=== PATIENT | male | born 2000 | race Caucasian/White ===

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

== ENCOUNTER 2022-12-28 10:00 | Emergency (ER) | payer OTHER, SELFPAY ==
[2022-12-28 10:09] VITALS: BP 118/88; PULSE 113; RESP 16; TEMP 36.8; O2SAT 100
--- NOTE | 2022-12-28 10:40 | ED.URI ---
HPI - URI/Sore Throat General Chief Complaint: Upper Respiratory Infection Stated Complaint: cough, sore throat Time Seen by Provider: 12/28/22 10:41 Source: patient, family, RN notes reviewed and old records reviewed Mode of arrival: ambulatory Limitations: no limitations History of Present Illness HPI Narrative: 22 year old male accompanied by guardian with complaints of sore throat, sinus congestion and drainage, and cough for the past 4 days. Guardian states that he was exposed to strep throat over the weekend and she has also been ill. Patient reports that throat hurts to swallow, appetite is decreased; speaking softly states it hurts to talk also. Patient denies any ear pain, shortness of breath, chest tightness or pressure.Guardian reports no known fevers. MD elicited complaint: cough and sore throat Onset (ago): day(s) (4) Pain scale (0-10): 4 Able to tolerate fluids by mouth: Yes Exacerbating factors: swallowing and speaking Related Data Home Medications Medication Instructions Recorded Confirmed buspirone 15 mg tablet 15 mg PO DAILY 12/02/19 12/28/22 meloxicam 15 mg tablet 15 mg PO DAILY 12/02/19 12/28/22 oxcarbazepine 600 mg tablet 600 mg PO BID 12/02/19 12/28/22 atomoxetine 60 mg capsule 60 mg PO DAILY 12/28/22 12/28/22 risperidone 1 mg tablet 1 mg PO DAILY 12/28/22 12/28/22 Allergies Allergy/AdvReac Type Severity Reaction Status Date / Time Penicillins Allergy Mild Hives Verified 12/28/22 10:43 polyethylene glycol 3350 Allergy Unknown RASH Verified 12/28/22 10:17 amoxicillin [From Augmentin] Allergy Hives Verified 12/28/22 10:43 clavulanic acid Allergy Hives Verified 12/28/22 10:43 [From Augmentin] MOSQUITO BITES Allergy Mild Rash Uncoded 12/28/22 10:43 Review of Systems Review of Systems: CONSTITUTIONAL: Denies malaise, chills, sweats, or fever. EYES: Denies visual changes, redness, or discharge. ENT: Reports rhinorrhea, congestion, sinus pain, no otalgia, positive for sore throat. CARDIOVASCULAR: Denies chest pain, palpitations, or edema. RESPIRATORY: Reports cough.? Denies dyspnea. GASTROINTESTINAL: Denies abdominal pain, nausea, vomiting, diarrhea, appetite decreased SKIN: Denies rash or itching. MUSCULOSKELETAL: Denies myalgia. NEUROLOGIC: Denies headache. All systems reviewed & are unremarkable except as noted in HPI and below PMFSH Past Medical History Medical History (Updated 12/29/22 @ 08:53 by Sherron Ham NP) ADHD Ankle fracture, right Anxiety Asperger's disorder Autism EDS (Adamaris-Danlos syndrome) JRA (juvenile rheumatoid arthritis) Left wrist fracture Leg fracture, left Seasonal allergies Surgical History Surgical History H/O tooth extraction Social History Social History Smoking status: Never smoker Alcohol intake: never Comments At time of signature, agree with nursing past medical, surgical, social and family history. There is no relevant family history pertinent to the presenting complaint Exam Narrative: GENERAL: Well-appearing, well-nourished, and in no acute distress. HEAD: Normocephalic EYES: PERRLA, conjunctivae clear ENT: Nares clear, turbinates edematous and erythematous, clear to light yellow discharge. Mucous membranes moist. TM pearly mendoza with dull light reflex bilaterally; no tragal tenderness. Oropharynx erythematous without lesions. Tonsils red enlarged and without exudate, no drooling, no hoarseness, no trismus, uvula midline. NECK: Supple. lymphadenopathy CHEST: Clear to auscultation, breath sounds equal. No wheezing, rhonchi, rales, or stridor. No respiratory distress, speaks in full sentences. HEART: Regular rate and rhythm. No murmur heard. dry cough noted SAO2 100% on room air SKIN: Warm, dry, no rash. NEURO: Alert and oriented x3. PSYCH: Normal mood and affect Course Course Emergency Course
== END 2022-12-28 10:56 | disposition home or self-care (01) ==
PROVIDERS: Emergency Provider Registered Nurse
DX: J02.9 Acute pharyngitis, unspecified (principal); F41.9 Anxiety disorder, unspecified; Z79.1 Long term (current) use of non-steroidal anti-inflammatories (NSAID)
CPT/HCPCS: 87081; 87880; 99213; G0463

== ENCOUNTER 2023-01-04 10:45 | Outpatient (RCR) | payer OTHER, SELFPAY ==
--- NOTE | 2022-11-20 10:59 | OTOPEVAL1 ---
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 He has worn Silver Ring Splints for many years to support the joints in his fingers and thumb. He presents today to be measured for a new thumb swan neck splint as his current one broke. Reported Pain Level Pain Score 0: Self Report Assessment OT Clinical Summary Patient presents for new thumb splint secondary to hypermobility of his joints. He was measured for Silver Ring [place] Neck splint for the left thumb today. He will return when the splint arrives for fitting. Thank you for this referral. Plan of Care Interventions Check Out for Orthotic/Pr OT Services Indicated Yes These treatments will address the objective and functional deficits as defined above. The patient will be advanced safely and appropriately in order for the patient to progress towards his/her prior level of function. Additional exercises will be introduced and as well as a comprehensive home exercise program upon discharge, if needed, ?to ensure carryover of functional gains achieved in the clinic. This treatment plan has been reviewed and agreement upon by the patient.
--- NOTE | 2023-01-05 11:44 | OTOPDC ---
Assessment and note entered by Wilmer Felix, OTR/Monique, CHT Evaluation Information Assessment Status Discharge Assessment OT Clinical Summary Patient referred to outpatient hand therapy with dx of Adamaris Danlos Syndrome. He has been wearing Silver Ring Splints for many years and returns to be measured for a new swan neck splint due to his other splint breaking. Patient was measured and the splint has been issued. No further skilled OT indicated at this time. Discharging from OT services. Plan of Care OT Services Indicated No
== END 2023-02-03 09:24 | disposition home or self-care (01) ==
LOC: ANHOT 10:45
PROVIDERS: PCP Family Medicine; Visit Provider Internal Medicine
DX: M35.7 Hypermobility syndrome (principal); M79.641 Pain in right hand; M79.642 Pain in left hand
CPT/HCPCS: 97165; L3933

== ENCOUNTER 2023-06-08 09:50 | Outpatient (CLI) | payer OTHER, SELFPAY ==
--- NOTE | ~2023-06-08 | XR_ITS ---
EXAMINATION: XR barium swallow DATE: 06/08/2023 10:28 INDICATION: Dysphagia TECHNIQUE: The patient drank thick barium, gas-producing crystals, and thin barium. Fluoroscopic spot radiographs of the hypopharynx and esophagus were obtained. Fluoroscopy exposure time was 1.8 minut es. A total of 1523 fluoroscopic images were recorded. COMPARISON: None. FINDINGS: The pharynx is symmetric and without evidence of mass lesion or mucosal irregularity. The e sophagus is normal without mass or stricture. Esophageal motility is normal. Very small sliding-type hiatal hernia with gastroesophageal junction approximately 3 cm above level of the diaphragm. There w as no gastroesophageal reflux with provocative maneuvers. IMPRESSION: 1. Very small sliding-type hiatal hernia without reflux with provocative maneuvers. Otherwise normal esophagram. Reviewed, dictated and finalized at location A. IMPRESSION: 1. Very small sliding-type hiatal hernia without reflux with provocative maneuv ers. Otherwise normal esophagram.
== END 2023-06-08 09:51 | disposition home or self-care (01) ==
PROVIDERS: Visit Provider Internal Medicine
DX: R13.10 Dysphagia, unspecified (principal); K44.9 Diaphragmatic hernia without obstruction or gangrene
CPT/HCPCS: 74220

== ENCOUNTER 2023-09-06 02:09 | Day surgery (SDC) | payer OTHER, SELFPAY ==
[2023-08-24 15:44] VITALS: BMI 18.6
--- NOTE | 2023-09-03 09:21 | SUR.PREOP ---
Patient called regarding upcoming procedure. Reviewed preop instructions, appointment times, and procedure prep.
--- NOTE | 2023-09-05 10:58 | PM.HPGS ---
History of Present Illness History of Present Illness Consent: Risks, benefits, and alternatives have been discussed and questions answered. Patient agrees to proceed with procedure. Chief complaint: dysphagia,GERD,Diaphragmatic hernia Narrative: Nas Cardenas is a 22 year old male Who is having difficulty swallowing. He has a history of Asperger's, ADD, Ehlerss-Danlos syndrome, anxiety, and hx of oral surgery.? He states over the last 1 year he has intermittent episodes of dysphagia where he feels like food gets stuck and he starts choking and goes down his windpipe.? He states this mainly occurs with solids only. He states it only happens with stress.? He denies any typical GERD symptoms Review of Systems Review of Systems: All systems reviewed & are unremarkable except as noted in HPI and below PMFSH Past Medical History Medical History ADD (attention deficit disorder) ADHD Ankle fracture, right Anxiety Asperger's disorder Autism Dysphagia EDS (Adamaris-Danlos syndrome) Hiatal hernia JRA (juvenile rheumatoid arthritis) Left wrist fracture Leg fracture, left Seasonal allergies Surgical History Surgical History H/O tooth extraction Family History Family History Grandparent Breast cancer Uterine cancer Heart disease Renal disease Social History Social History Smoking status: Never smoker Alcohol intake: never Substance use: never Substance use type: does not use Lack of Transportation: No Lack of Food: Never True Current Housing: I Have Housing Concerned About Future Housing: No Difficulty Paying Gas/Electric Bills: No Difficulty Paying for Meds: No Currently Unemployed: No Education: High School Diploma/GED Difficulty w/ Childcare or Family Care: No Living arrangements: with family Spiritual care concerns: No Meds Home Medications and Allergies Home Medications Medication Instructions Recorded Confirmed Type meloxicam 15 mg tablet 15 mg PO DAILY 12/02/19 09/06/23 History oxcarbazepine 600 mg tablet 600 mg PO BID 12/02/19 09/06/23 History atomoxetine 60 mg capsule 60 mg PO DAILY 12/28/22 09/06/23 History buspirone 15 mg tablet 7.5 mg PO TID 07/06/23 09/06/23 History risperidone 1 mg tablet 1 mg PO BID 07/06/23 09/06/23 History Caltrate with Vitamin D3 1 cap PO DAILY 08/24/23 09/06/23 History benzoyl peroxide 5 % topical gel 1 applic topical HS 08/24/23 09/06/23 History esomeprazole magnesium 40 mg 40 mg PO DAILY PRN DYSPHAGIA 08/24/23 09/06/23 History capsule,delayed release (Nexium) mecobalamin (vitamin B12) 1,000 1,000 mcg PO DAILY 08/24/23 09/06/23 History mcg chewable tablet milk thistle 175 mg capsule 175 mg PO DAILY 08/24/23 09/06/23 History psyllium husk 0.52 gram capsule 0.52 g PO 3XW 08/24/23 09/06/23 History Allergies Allergy/AdvReac Type Severity Reaction Status Date / Time meningococcal vaccine B and C Allergy Severe Rash Verified 09/06/23 09:15 polyethylene glycol 3350 Allergy Severe RASH Verified 09/06/23 09:15 amoxicillin [From Augmentin] Allergy Intermediate Hives Verified 09/06/23 09:15 clavulanic acid Allergy Intermediate Hives Verified 09/06/23 09:15 [From Augmentin] Penicillins Allergy Intermediate Hives Verified 09/06/23 09:15 MOSQUITO BITES Allergy Intermediate Rash Uncoded 09/06/23 09:15 Exam Const: General: alert Orientation/consciousness: patient oriented x3 Resp: Auscultation: clear to auscultation bilaterally Cardio: Rhythm: regular rhythm GI: GI Palp: Yes Soft to palpation and No Tenderness to palpation present (GI) Neuro: General: patient oriented x3 Assessment and Plan Assessment and plan (1) Dysphagia: Code(s): R13.10 - Dysphagia, unspecified Status: Acute Assessment and
[2023-09-06 09:16] VITALS: BP 117/72; PULSE 99; RESP 18; TEMP 36.5; O2SAT 100
[2023-09-06] MEDS: LACTATED RINGERS 1,000 ML 150 ML IV CONT (09:18)
--- NOTE | 2023-09-06 09:32 | WPDANESEPPF ---
Anes - Initial Pre Proc Eval Procedure: Operation Date: 09/06/23 10:30 Proposed Procedures p Esophagogastroduodenoscopy - Anjel Quezada MD Date/Time: 09/06/23 09:32 Surgeon: Anjel Quezada MD Pre Op Diagnosis: dysphagia,GERD,Diaphragmatic hernia Patient Data Age: 22 Gender: M Height: 1.88 m Weight: 65.6 kg Last Vital Signs Temp 97.7 F 09/06/23 09:16 Pulse 99 09/06/23 09:16 Resp 18 09/06/23 09:16 BP 117/72 09/06/23 09:16 Pulse Ox 100 09/06/23 09:16 O2 Del Method Room Air 09/06/23 09:16 Allergies Allergy/AdvReac Type Severity Reaction Status Date / Time meningococcal vaccine B and C Allergy Severe Rash Verified 09/06/23 09:15 polyethylene glycol 3350 Allergy Severe RASH Verified 09/06/23 09:15 amoxicillin [From Augmentin] Allergy Intermediate Hives Verified 09/06/23 09:15 clavulanic acid Allergy Intermediate Hives Verified 09/06/23 09:15 [From Augmentin] Penicillins Allergy Intermediate Hives Verified 09/06/23 09:15 MOSQUITO BITES Allergy Intermediate Rash Uncoded 09/06/23 09:15 Home Medications Medication Instructions Recorded Confirmed Type meloxicam 15 mg tablet 15 mg PO DAILY 12/02/19 09/06/23 History oxcarbazepine 600 mg tablet 600 mg PO BID 12/02/19 09/06/23 History atomoxetine 60 mg capsule 60 mg PO DAILY 12/28/22 09/06/23 History buspirone 15 mg tablet 7.5 mg PO TID 07/06/23 09/06/23 History risperidone 1 mg tablet 1 mg PO BID 07/06/23 09/06/23 History Caltrate with Vitamin D3 1 cap PO DAILY 08/24/23 09/06/23 History benzoyl peroxide 5 % topical gel 1 applic topical HS 08/24/23 09/06/23 History esomeprazole magnesium 40 mg 40 mg PO DAILY PRN DYSPHAGIA 08/24/23 09/06/23 History capsule,delayed release (Nexium) mecobalamin (vitamin B12) 1,000 1,000 mcg PO DAILY 08/24/23 09/06/23 History mcg chewable tablet milk thistle 175 mg capsule 175 mg PO DAILY 08/24/23 09/06/23 History psyllium husk 0.52 gram capsule 0.52 g PO 3XW 08/24/23 09/06/23 History Patient hx anesthesia problems: none Family hx anesthesia problems: none Results Review: All pre-operative results and documents have been reviewed as part of the pre-operative evaluation. [facility] Past Medical History Medical History ADD (attention deficit disorder) ADHD Ankle fracture, right Anxiety Asperger's disorder Autism Dysphagia EDS (Adamaris-Danlos syndrome) Hiatal hernia JRA (juvenile rheumatoid arthritis) Left wrist fracture Leg fracture, left Seasonal allergies Surgical History Surgical History H/O tooth extraction Family History Family History Grandparent Breast cancer Uterine cancer Heart disease Renal disease Social History Social History Smoking status: Never smoker Alcohol intake: never Substance use: never Substance use type: does not use Lack of Transportation: No Lack of Food: Never True Current Housing: I Have Housing Concerned About Future Housing: No Difficulty Paying Gas/Electric Bills: No Difficulty Paying for Meds: No Currently Unemployed: No Education: High School Diploma/GED Difficulty w/ Childcare or Family Care: No Living arrangements: with family Spiritual care concerns: No Anes - Eval Final PreProcedure Day of Procedure 09/06/23 09:32 Patient weight: normal Heart: regular rate and rhythm Lungs: clear to auscultation Airway: Mallampati scale class II Neurological: alert and oriented Last oral intake: >/= 8 hours ASA classification: III Emergent: no Anesthetic plan: proceed Anesthesia type and monitoring: general GIVS and standard monitoring Results Review: All pre-operative results and documents have been reviewed as part of the pre-operative evaluation. Informed Consent: The patient's anesthetic plan and
[2023-09-06] MEDS: BENZOCAINE (*SP) 60 ML SPRAY CAN (HURRICAINE) 1 SPRAY MUCOUS MEM (10:18)
[2023-09-06 10:28] VITALS: BP 93/62; PULSE 81; RESP 16; O2SAT 95
[2023-09-06 10:38] VITALS: BP 118/60; PULSE 78; RESP 25; O2SAT 100
[2023-09-06 10:48] VITALS: BP 101/72; PULSE 75; RESP 21; O2SAT 100
== END 2023-09-06 10:51 | disposition home or self-care (01) ==
PROVIDERS: PCP Internal Medicine; Visit Provider Internal Medicine Gastroenterology
PROC: 0DJ08ZZ Inspection of Upper Intestinal Tract, Via Natural or Artificial Opening Endoscopic (ICD-10-PCS; CPT 43235; principal; 2023-09-06 10:30)
DX: R13.10 Dysphagia, unspecified (principal); F41.9 Anxiety disorder, unspecified; F84.5 Asperger's syndrome; Q79.60 Ehlers-Danlos syndrome, unspecified; F90.9 Attention-deficit hyperactivity disorder, unspecified type; J30.2 Other seasonal allergic rhinitis; Z80.3 Family history of malignant neoplasm of breast; Z82.49 Family history of ischemic heart disease and other diseases of the circulatory system; Z80.49 Family history of malignant neoplasm of other genital organs; K21.9 Gastro-esophageal reflux disease without esophagitis
CPT/HCPCS: 43239; 87081; 88305; J2704; J7120

== ENCOUNTER 2024-04-08 10:37 | Emergency (ER) | payer OTHER, SELFPAY ==
[2024-04-08 11:05] VITALS: BP 127/77; PULSE 109; RESP 16; TEMP 36.4; O2SAT 100
--- NOTE | 2024-04-08 11:19 | ED.MALEGU ---
HPI - Male Genitourinary General Chief complaint: Urogenital-Male Stated complaint: painful urination, uti Source: patient and RN notes reviewed Mode of arrival: ambulatory Limitations: no limitations History of Present Illness HPI Narrative: 23 y/o male with hx asperger's disorder presented for c/o burning with urination. Onset 2 days. Reports hx UTIs. Denies hematuria, nausea, vomiting, abdominal pain, flank pain, constipation, diarrhea, fevers or chills. Related Data Home Medications Medication Instructions Recorded Confirmed meloxicam 15 mg tablet 15 mg PO DAILY 12/02/19 10/12/23 oxcarbazepine 600 mg tablet 600 mg PO BID 12/02/19 10/12/23 atomoxetine 60 mg capsule 60 mg PO DAILY 12/28/22 10/12/23 buspirone 15 mg tablet 7.5 mg PO TID 07/06/23 10/12/23 risperidone 1 mg tablet 1 mg PO BID 07/06/23 10/12/23 Caltrate with Vitamin D3 1 cap PO DAILY 08/24/23 10/12/23 benzoyl peroxide 5 % topical gel 1 applic topical HS 08/24/23 10/12/23 esomeprazole magnesium 40 mg 40 mg PO DAILY PRN DYSPHAGIA 08/24/23 10/12/23 capsule,delayed release (Nexium) mecobalamin (vitamin B12) 1,000 1,000 mcg PO DAILY 08/24/23 10/12/23 mcg chewable tablet milk thistle 175 mg capsule 175 mg PO DAILY 08/24/23 10/12/23 psyllium husk 0.52 gram capsule 0.52 g PO 3XW 08/24/23 10/12/23 atomoxetine 40 mg capsule mg PO 04/08/24 (Strattera) Allergies Allergy/AdvReac Type Severity Reaction Status Date / Time meningococcal vaccine B and C Allergy Severe Rash Verified 04/08/24 11:00 polyethylene glycol 3350 Allergy Severe RASH Verified 04/08/24 11:00 amoxicillin [From Augmentin] Allergy Intermediate Hives Verified 04/08/24 11:00 clavulanic acid Allergy Intermediate Hives Verified 04/08/24 11:00 [From Augmentin] Penicillins Allergy Intermediate Hives Verified 04/08/24 11:00 MOSQUITO BITES Allergy Intermediate Rash Uncoded 04/08/24 11:00 Review of Systems Review of Systems: CONSTITUTIONAL: Denies body aches, fever, chills, or sweats. CARDIOVASCULAR: Denies chest pain, palpitations, or edema. RESPIRATORY: Denies cough or dyspnea. GASTROINTESTINAL: Denies abdominal pain, nausea, vomiting, or diarrhea. GENITOURINARY: Reports dysuria, frequency, denies urgency, hematuria, flank pain SKIN: Denies rash, itching, or wounds. MUSCULOSKELETAL: Denies back pain or myalgia. [facility] Past Medical History Medical History ADD (attention deficit disorder) ADHD Ankle fracture, right Anxiety Asperger's disorder Autism Dysphagia EDS (Adamaris-Danlos syndrome) Hiatal hernia JRA (juvenile rheumatoid arthritis) Left wrist fracture Leg fracture, left Seasonal allergies Surgical History Surgical History H/O tooth extraction Family History Family History Grandparent Breast cancer Uterine cancer Heart disease Renal disease Social History Social History Smoking status: Never smoker Alcohol intake: never Substance use: never Substance use type: does not use Lack of Transportation: No Lack of Food: Never True Current Housing: I Have Housing Concerned About Future Housing: No Difficulty Paying Gas/Electric Bills: No Difficulty Paying for Meds: No Currently Unemployed: No Education: High School Diploma/GED Difficulty w/ Childcare or Family Care: No Living arrangements: with family Spiritual care concerns: No Comments At time of signature, I have reviewed and agree with nursing past medical, surgical, social and family history unless otherwise noted. Please see nursing chart for further information. There is no relevant family history pertinent to the presenting complaint Exam Narrative: GENERAL: Well-appearing and in no acute distress. HEAD: Normocephalic EYES: EOMI. . ENT: Mucous membranes
== END 2024-04-08 12:23 | disposition home or self-care (01) ==
PROVIDERS: Emergency Provider Nurse Practitioner Family; PCP Internal Medicine
DX: N39.0 Urinary tract infection, site not specified (principal); B96.4 Proteus (mirabilis) (morganii) as the cause of diseases classified elsewhere; F90.9 Attention-deficit hyperactivity disorder, unspecified type; F84.5 Asperger's syndrome; F41.9 Anxiety disorder, unspecified; M08.00 Unspecified juvenile rheumatoid arthritis of unspecified site
CPT/HCPCS: 81003; 87077; 87086; 87088; 87186; 99213; G0463

== ENCOUNTER 2025-09-18 13:51 | Outpatient (CLI) | payer OTHER, SELFPAY ==
[2025-09-18 14:39] LABS: Hematocrit 41.2 % (42.0-52.0); Hemoglobin 14.2 g/dL (14.0-18.0); Immature Granulocyte Percent A 1.0 % (0-0.5); Lymphocytes Absolute Auto 1.90 K/mm3 (0.9-3.2); Mean Corpuscular HGB Conc 34.5 g/dl (32-36); Mean Corpuscular Hemoglobin 29.0 pg (26-34); Mean Corpuscular Volume 84.1 fl (80-100); Nucleated Red Blood Cells Absolute Auto 0.000 K/mm3 (0.0-0.012); Nucleated Red Blood Cells Perc 0.0 % (0.0-0.2); Platelet Count Result 155 k/mm3 (150-375); Red Blood Count 4.90 M/mm3 (4.6-6.20); White Blood Count 5.8 K/mm3 (4.5-10.0)
[2025-09-18 14:49] LABS: Hemoglobin A1C 5.3 % (<5.7)
[2025-09-18 14:58] LABS: Alanine Aminotransferase 22 U/L (6-50); Albumin Level 4.6 g/dL (3.5-5.1); Alkaline Phosphatase 71 U/L (38-126); Anion Gap 7 mmol/L (4-12); Aspartate Amino Transferase 24 U/L (17-59); Bilirubin,Total 0.2 mg/dL (0.2-1.3); Blood Urea Nitrogen 24 mg/dL (9-20); Calcium 9.2 mg/dL (8.4-10.2); Carbon Dioxide 28 mmol/L (22-30); Chloride 103 mmol/L (98-107); Cholesterol 151 mg/dL (0-200); Estimated Glomerular Filt Rate > 60; Glucose 86 mg/dL (65-110); HDL Direct 62 mg/dL; Potassium 4.3 mmol/L (3.4-5.0); Sodium 138 mmol/L (137-145); Total Protein 7.3 g/dL (6.3-8.2); Triglycerides 124 mg/dL (<150)
[2025-09-18 15:33] LABS: Thyroid Stimulating Hormone 1.070 uIU/mL (0.465-4.680)
--- OUTSIDE RECORDS SUMMARY | 2025-09-18 15:54 | XMS_ITS | Encounter Summary ---
Author Organization [facility] Address [address] [place] [address] Care Team Providers Care Developer Advisor Name Role Phone Kenia Bull MD Primary Care Provider [phone] Shamir Dias MD [facility] Coco Santos MD Primary Care Provider [phone] Encounter Details Date Type Department Care Team (Late st Contact Info) Description 07/29/2018 Abstract [facility] CONVERSION [address] [place] [address] , Generic Conversion, Social History Tobacco Use Types Packs/Day Years Used Date Smoking Tobacco: Never Assessed Comments Unknown Sex and Gender Information Value Date Recorded Sex Assigned at Male 02/13/2025 11:45 AM CDT Legal Sex Male 8:51 PM CDT Gender Identity Male 02/13/2025 11:45 AM CDT Sexual Orientation Not on file documented as of this encounter Plan of Treatment Upcoming Encounters Date Type Department Care Team (Late Contact Info) Description 02/11/2026 9:00 AM CDT Office Visit [facility] Multispecialty Care - [place] [address] [address] [place] [address] Coco Santos MD [address] [place] [address] documented as of this encounter Visit Diagnoses Not on filedocumented in this encounter Additional Health Concerns Infection Onset Date Last Indicated Resolved Time COVID-19 Rule Out 03/22/2021 03/22/2021 03/22/2021 12:19 PM CDT documented as of this encounter Care Teams Developer Advisor Relationship Specialty Start Date End Date Kenia Bull MD PCP - General INTERNAL MEDICINE 08/31/18 01/28/23 Shamir Dais MD PCP - General FAMILY PRACTICE 01/29/23 04/12/23 Coco Santos MD [address] [address] PCP - General INTERNAL MEDICINE 04/13/23 documented as of this encounter
--- OUTSIDE RECORDS SUMMARY | 2025-09-18 15:54 | XMS_ITS | Clinical Summary ---
Author Organization [facility] Address [address] [place] [address] Care Team Providers Care Tier In Name Role Phone Coco Santos MD Primary Care Provider [phone] Allergies Active Allergy Reactions Criticality Noted Date Comments Amoxicillin-Pot Clavulanate Hives High 06/26/2010 Mening Acy&W-135 Diphth Conj Redness 06/17/2020 Patient received his first menactra injection at the veneer sample maker on 05/22 and broke out in hives/redness. Grandmother states he will not be receiving the second injection per veneer sample maker. Penicillins Hives High 06/26/2010 Polyethylene Glycol (Macrogol) Rash Low 07/18/2015 Medications atomoxetine (STRATTERA) 60 MG capsule Take 1 capsule (60 mg total) by mouth daily. Active busPIRone 15 MG tablet Take 0.5 tablets (7.5 mg total) by mouth 3 (three) times daily. Active Calcium Citrate-Vitamin D 315-200 MG-UNIT Tab Take 1 tablet by mouth daily. 6 Active Milk Thistle Extract 87.5 MG Cap Take 1 capsule by mouth daily. Active OXcarbazepine (TRILEPTAL) 600 MG Tab tablet Take 1 tablet (600 mg total) by mouth 2 (two) times daily. Active Elastic Bandages & Supports (KIA ANKLE BRACE) MiscIndications:Un stable ankle, unspecified laterality,Benign hypermobility syndrome MILAGROS Ankle Braces, please fill what insurance will cover 1 each 0 Active acetaminophen 325 MG tablet 1 tablet (325 mg total) every 6 (six) hours as needed for Pain. 0 Active risperiDONE 1 MG tabletIndications: Asperger syndrome (HHS/HCC) Take 1 tablet (1 mg total) by mouth 2 (two) times daily. 60 tablet 2 2 Active FINGER SPLINT MISC, DME,Indications:Be nign hypermobility syndrome,Pain in both hands 1 Device by Does not apply route daily. Patient needs a new splint left hand thumb 1 Device 1 2 Active OXcarbazepine (TRILEPTAL) 150 MG tablet Take 1 tablet (150 mg total) by mouth 2 (two) times daily. 4 Active Benzoyl Peroxide 5 % GelIndications:Acn e vulgaris Place 1 g onto the skin nightly at bedtime. 90 g 11 5 Active folic acid (FOLVITE) 1 MG tabletIndications: Folic acid deficiency Take 1 tablet (1 mg total) by mouth daily. 90 tablet 1 5 Active tretinoin (RETIN-A) 0.05 % creamIndications:A cne vulgaris Apply topically nightly at bedtime. Apply to acne. 45 g 3 5 Active omeprazole (PRILOSEC) 40 MG capsuleIndications :Gastroesophageal reflux disease without esophagitis Take 1 capsule (40 mg total) by mouth daily as needed. 90 capsule 1 5 Active Cyanocobalamin (VITAMIN B-12) 1000 MCG SL TabIndications:Vit way B [address] 1 tablet under the tongue daily. 90 tablet 2 5 Active meloxicam (MOBIC) 15 MG tabletIndications: Pain in joint involving multiple sites Take 1 tablet (15 mg total) by mouth daily as needed. 30 tablet 6 5 Active Active Problems Problem Noted Date Diagnosed Date Ear lump, right 08/11/2024 Ankle pain, right 09/29/2017 Rhinitis 10/11/2016 Chest pain 05/25/2016 Acid reflux disease 10/29/2015 Ankle instability 10/29/2015 Asperger syndrome 10/29/2015 Overview (08/31/2018): Annotation - [id number]: Psych Dr Domínguez in [place] Benign hypermobility syndrome 10/29/2015 Pain of hand 10/29/2015 Resolved Problems Problem Noted Date Diagnosed Date Resolved Date Foreign body in penis, initial encounter 06/17/2020 06/12/2021 Foreign body in bladder and urethra 06/06/2020 01/22/2021 Physical exam 11/02/2018 07/05/2020 Encounters Date Type Department Care Team Description 08/13/2025 10:20 AM CDT Office Visit [facility] Medical [facility] Multispecialty Care - [address] [place] [address] Coco Santos MD Follow Up (Asperger's syndrome ); Vitamin D Deficiency; B12 Deficient ; Eye Problem (In eye lid left noticed last week. ); Acne 08/13/2025 Travel from Last 3 Months Immunizations Immunization Administration Dates Next Due DTaP (Daptacel) 06/08/2007 Dtap 03/04/2004, 3,04/16/2003,11/25 Dtap (Generic) 06/08/2007 Flumist (Intranasal LAIV4) 08/08/2014 Flumist (Intranasal) 08/12/2011,07/13/2011 HPV 10/07/2016,08/25/2016 HPV GARDASIL 9-VALENT 03/09/2017,07/15/2015 HPV4 (Gardasil) 10/07/2016,08/25/2016 Hepatitis B Pediatric 08/29/2003,2002 Hepatitis B/Hib 3 Dose Schedule 04/16/2003 Hib 01/01/2004,08/29/2003,2002 Influenza Adult (Generic) 08/01/2020,12/2018,08/08/2018,06/26,07/28/2016,07/15/2015,09/06/20 13,09/14/2012 MENINGOCOCCAL A C Y&W-135 oligosaccharide (MENVEO) 06/28/2013 MMR 01/01/2004,10/01/2003 Menactra 05/22/2020,07/15/2015 Meningcoccal Group B (Bexser o)(aka Meningitis) 08/01/2020,05/22/2020 Pneumococcal (Prevnar 7) 01/01/2004,08/29/2003,0 04/16/2003 Polio IPV (Ipol) 01/01/2004,04/16/2003, 3 Rotavirus (RotaTeq) 07/15/2015 Tdap (Generic) 07/15/2015,06/28/2013 Tdap (Historical Only-select from magnify glass) 11/19/2020 Varicella Vaccine 08/08/2018,10/01/2003 Family History Medical History Relation Comments None Brother None Daughter None Father Arthritis Maternal Aunt Progressive Rheu matoid Cancer Maternal Aunt Multiple Myeloma None Maternal Aunt None Maternal Grandfather Cancer Maternal Grandmother Breast & Ut erine Diabetes Maternal Grandmother Heart Disease Maternal Grandmother Defec t-Myocardio [place] Hypertension Maternal Grandmother Kidney Disease Maternal Grandmother Thin Membra ne Basement Disease None Maternal Grandmother None Maternal Uncle None Mother None Paternal Aunt None Paternal Grandfather None Paternal Grandmother None Paternal Uncle None Sister None Son Relation Status Comments Brother Daughter Father Maternal Aunt Maternal Grandfather Maternal Grandmother Maternal Uncle Mother Paternal Aunt Paternal Grandfather Paternal Grandmother Paternal Uncle Sister Son Social History Tobacco Use Types Packs/Day Years Used Date Smoking Tobacco: Never Smokeless Tobacco: Never Tobacco Cessation:Counseling Given: Yes Comments:Counseled by Dr Santos. Alcohol Use Standard Drinks/Week Comments Never 0 (1 standard drink = 0.6 oz pur e alcohol) AUDIT-C Answer Date Recorded Frequency of Alcohol Consumption Never 08/31/2018 Average Number of Drinks Not on file 018 Frequency of Binge Drinking Not on file 04/2018 PHQ-2 Answer Date Recorded Patient Health Questionnaire-2 Score 0 02/13/2025 Comments Unknown Sex and Gender Information Value Date Recorded Sex Assigned at Male 02/13/2025 11:45 AM CDT Legal Sex Male 8:51 PM CDT Gender Identity Male 02/13/2025 11:45 AM CDT Sexual Orientation Not on file Last Filed Vital Signs Vital Sign Reading Time Taken Comments Blood Pressure 114/78 08/13/2025 10:35 AM CDT Pulse 86 08/13/2025 10:35 AM CDT Temperature 37 C (98.6 F) 08/13/2025 10:35 AM CDT Respiratory Rate 14 08/13/2025 10:3 5 AM CDT Oxygen Saturation 98% 08/13/2025 10: 35 AM CDT Inhaled Oxygen Concentration - - Weight 68.9 kg (151 lb 12.8 oz) 10/20/2 025 10:35 AM CDT Height 188 cm (6' 2) 08/13/2025 10:35 AM CDT Body Mass Index 19.49 08/13/2025 10:35 AM CDT Plan of Treatment Upcoming Encounters Date Type Department Care Team (Late st Contact Info) Description 02/11/2026 9:00 AM CDT Office Visit [facility] Multispecialty Care - [place] [address] [address] [address] [place] [address] Coco Santos MD [address] [facility] [address] [place] [address] Health Maintenance Due Date Last Done Comments COVID-19 Vaccine ( season) 2025 01/02/2021 Annual Physical 02/13/2026 02/13/2025, 01/07/2024 Influenza Adult (#1) 2026 08/01/2020, 07/27/2019, 08/08/2018, Additional history exists Postponed from 07/25/2025 (Patient Refused) DTaP, Tdap and Td Vaccines (9 - Td or Tdap) 11/19/2030 11/19/2020, 07/15/2015, 06/28/2013, Additional history exists Hepatitis B Vaccines Completed 08/29/2003, 04/16/2003, 2002 Pneumococcal Vaccine: Pediatrics (0 to 5 Years) and At-Risk Patients (6 to 49 Years) Aged Out 01/01/2004, 08/29/2003, 04/16/2003 No longer eligible based on patient's age to complete this topic HPV Vaccines Completed 03/09/2017, 09/24, 10/07/2016, Additional history exists Meningococcal Vaccine Completed 05/22/2020 , 07/15/2015, 06/28/2013 Meningococcal B Vaccine Completed 08/01/2020, 05/22 Hepatitis C Completed 01/07/2024 PHQ-2 (Physician [place]) Completed 02/13/2025 Hepatitis A Vaccines Aged Out No long er eligible based on patient's age to complete this topic RSV Immunizations Under 20 Months Aged Out No longer eligible based on patient's age to complete this topic Procedures Procedure Name Priority Date/Time Associated Diagnosis Comments REMOVE IMPACTED CERUMEN INSTRUMENTATION UNILAT Routine 08/13/2025 10:20 AM CDT Bilateral impacted cerumen HEPATITIS C ANTIBODY Routine 01/07/2024 1:12 PM CDT Annual physical exam General medical exam Encounter for hepatitis C screening test for low risk patient from Last 3 Months or Most Recently Relevant to Health Maintenance Results * REMOVE IMPACTED CERUMEN INSTRUMENTATION UNILAT (08/13/2025 10:20 AM CDT) Narrative Coco Santos MD - 08/13/2025 10:20 AM CDT Coco Santos MD 08/13/2025 11:12 AM *Ear Cerumen Removal Date/Time: 08/13/2025 10:20 AM Performed by: Coco Santos MD Authorized by: Coco Santos MD Ceruminolytics applied: Ceruminolytics applied prior to the procedure. Location details: right ear and left ear Patient tolerance: patient tolerated the procedure well with no immediate complications Comments: Impacted wax removed bilaterally Procedure type: curette Coco Santos MD PROCEDURE/MINOR SURGICAL ORDERAB LES Final Result * HEPATITIS C ANTIBODY (01/07/2024 1:12 PM CDT) HEPATITIS C AB NON-REACTI VE NON-REACT SERVANDO 01/07/2024 10:[address] [facility] Comment: ANTIBODIES TO HCV NOT DETECTED. DOES NOT EXCLUDE THE POSSIBILITY OF EXPOSURE TO HCV. 01/07/2024 1:12 PM CDT Coco Santos MD LABORATORY Final Result [facility] [address] [place] [address], [id number] from Last 3 Months or Most Recently Relevant to Health Maintenance Insurance t [place]abe [place], [place] [id number] [place] [address] MEDICAID MEDICAID Advance Directives Documents on File Type Date Recorded Patient Program Advisor Expl anation Guardianship - Temporary 10/19/2018 12:00 AM GUARDIANSHIP DOCUMENT Guardianship - Temporary 07/29/2018 12:00 AM GUARDIANSHIP DOCUMEN T Guardianship - Temporary 07/12/2018 12:00 AM GUARDIANSHIP DOCUMEN T Guardianship - Temporary 05/18/2018 12:00 AM GUARDIANSHIP DOCUMEN T Care Teams Tier In Relationship Specialty Start Date End Date Coco Santos MD [address] [address] PCP - General INTERNAL MEDICINE 04/13/23
--- OUTSIDE RECORDS SUMMARY | 2025-09-18 15:54 | XMS_ITS | Encounter Summary ---
Author Organization [facility] Address [address] [place] [address] Care Team Providers Care Hot Iron Worker Name Role Phone Coco Santos MD Primary Care Provider [phone] Encounter Details Date Type Department Care Team (Late st Contact Info) Description 05/31/2023 Pro Stream +hart Message Enc [facility] [place] [address] [place] [address] [address] [place] [address] Coco Santos MD [address] [facility] [address] [place] [address] Nas Cardenas Social History Tobacco Use Types Packs/Day Years Used Date Smoking Tobacco: Never Smokeless Tobacco: Never Comments:Counseled by Dr Kayla peter. Alcohol Use Standard Drinks/Week Comments No 0 (1 standard drink = 0.6 oz pur e alcohol) AUDIT-C Answer Date Recorded Frequency of Alcohol Consumption Never 08/31/2018 Average Number of Drinks Not on file 018 Frequency of Binge Drinking Not on file 04/2018 PHQ-2 Answer Date Recorded Patient Health Questionnaire-2 Score 0 05/31/2023 Comments Unknown Sex and Gender Information Value Date Recorded Sex Assigned at Male 02/13/2025 11:45 AM CDT Legal Sex Male 8:51 PM CDT Gender Identity Male 02/13/2025 11:45 AM CDT Sexual Orientation Not on file documented as of this encounter Functional Status * Over the past 2 weeks, how often have you been bothered by any of the following problems? Question Answer Date of Assessment Author Status Little interest or pleasure in doing things Not at all 05/31/2023 3:33 PM CDT Kailyn Barreto MA Active Feeling down, depressed, or hopeless Not at all 05/31/2023 3:33 PM CDT Mahi Barreto MA Active Patient Health Questionnaire-2 Score 0 05/31/2023 3:33 PM CDT Helga Barreto MA Active * Calculated C-SSRS Risk Score (Lifetime/Recent) Answer Date of Assessment Author Status No Risk Indicated 05/31/2023 5:10 PM CDT Coco Santos MD Active * If you checked off any problems on this questionnaire so far, Question Answer Date of Assessment Author Status How difficult have these problems made it for you to do your work, take care of things at home, or get along with other people? Not difficult at all 05/31/2023 3:33 PM CDT Kailyn Barreto MA Active * Over the last 2 weeks, how often have you been bothered by any of the following problems? Question Answer Date of Assessment Author Status Feeling nervous, anxious, or on edge 0 05/31/2023 3:33 PM CDT Kailyn Barreto MA Ac tive Not being able to stop or control worrying 0 05/31/2023 3:33 PM CDT Kailyn Barreto MA A ctive Worrying too much about different things 0 05/31/2023 3:33 PM CDT Kailyn Barreto MA A ctive Trouble relaxing 0 05/31/2023 3:33 PM CDT Kailyn Esteban MA Active Being so restless that it is hard to sit still 1 05/31/2023 3:33 PM CDT Kailyn Barreto MA Active Becoming easily annoyed or irritable 0 05/31/2023 3:33 PM CDT Kailyn Barreto MA Ac tive Feeling afraid as if something awful might happen 1 05/31/2023 3:33 PM CDT Kailyn Barreto MA Ac tive PERRI-7 Total Score 2 05/31/2023 3:33 PM CDT Kailyn Stokes MA Active * [place] Suicide Severity Rating Scale (Screener/Recent Self-Report) Question Answer Date of Assessment Author Status 1. Wish to be (Past 1 Month) No 05/31/2023 5:10 PM CDT Coco Santos MD Active 2. Non-Specific Active Suici leny Thoughts (Past 1 Month) No 05/31/2023 5:10 PM CDT Coco Santos MD Active 6. Suicidal Behavior (Lifetime) No 05/31/2023 5:10 PM CDT Coco Santos MD Active documented as of this encounter Plan of Treatment Upcoming Encounters Date Type Department Care Team (Late st Contact Info) Description 02/11/2026 9:00 AM CDT [facility] Mult[facility] Care [address] [address] [address] [place] [address] Coco Santos MD [address] [place] [address] documented as of this encounter Visit Diagnoses Not on filedocumented in this encounter Additional Health Concerns Assessment Noted Time PHQ-9 Depression Total Score: 7 08/19/20 22 4:08 PM CDT documented as of this encounter Care Teams Hot Iron Worker Relationship Specialty Start Date End Date Coco Santos MD [address] [place] [address] PCP - General INTERNAL MEDICINE 04/13/23 documented as of this encounter
--- OUTSIDE RECORDS SUMMARY | 2025-09-18 15:54 | XMS_ITS | Encounter Summary ---
Author Organization [facility] Address [address] [place] [address] Care Team Providers Care Curing Press Operator Name Role Phone Coco Santos MD Primary Care Provider [phone] Encounter Details Date Type Department Care Team (Late st Contact Info) Description 09/10/2024 MyChart Message Enc [facility] - [place] [address] [address] [place] [address] Luz Clarke, CELLULAR EQUIPMENT REPAIRER [address] [place] [address] Urine Test Result Social History Tobacco Use Types Packs/Day Years [...] Date Recorded Patient Health Questionnaire-2 Score 0 03/27/2024 Comments Unknown Sex and Gender Information Value Date Recorded Sex Assigned at Male 02/13/2025 11:45 AM CDT Legal Sex Male 8:51 PM CDT Gender Identity Male 02/13/2025 11:45 AM CDT Sexual Orientation Not on file documented as of this encounter Plan of Treatment Upcoming Encounters Date Type Department Care Team (Late st Contact Info) Description 02/11/2026 9:00 AM CDT Office Visit [facility] Multispecialty [facility] - [place] [address] [place] [address] Coco Santos MD [address] [address] documented as of this encounter Visit Diagnoses Not on filedocumented in this encounter Additional Health Concerns Assessment Noted Time PHQ-9 Depression Total Score: 7 08/19/20 22 4:08 PM CDT documented as of this encounter Care Teams Curing Press Operator Relationship Specialty Start Date End Date Coco Santos MD [address] [address] PCP - General INTERNAL MEDICINE 04/13/23 documented as of this encounter
--- OUTSIDE RECORDS SUMMARY | 2025-09-18 15:54 | XMS_ITS | Clinical Summary ---
Author Organization [facility] Address [address] [place] [address] Care Team Providers Care Global Head Advertiser Solutions Name Role Phone Kenia Bull MD Primary Care Provider [phone] Source Comments [facility],non-owned Affiliates and Associated Physician Practices is amultiple site organization consisting of ambulatory clinics and hospital sitesin [place], [place], [place] and [place]. This disclosure is being madepursuant to the Care Everywhere program and may not contain all information available regarding this patient. Last updated 18.[facility] Allergies Active Allergy Reactions Criticality Noted Date Comments Augmentin Urticaria 06/26/2010 Polyethylene Glycol Rash Low 07/18/2015 Penicillins Urticaria 06/26/2010 Medications * Be aware that medications may not be up to date on this document. Alwaysverify current medications with the patient. OXcarbazepine (TRILEPTAL) 600 MG tablet Take 600 mg by mouth 2 times daily. Active atomoxetine (STRATTERA) 60 MG capsule Take 1 Cap by mouth every morning. Active busPIRone (BUSPAR) 15 MG tablet Take 0.5 Tabs by mouth 3 times daily Active risperiDONE, disintegrating, (RISPERDAL M) 0.5 MG tablet Take 0.5 mg by mouth 2 times daily 1 tab bid Active MILK THISTLE PO Take 175 mg by mouth once daily Active calcium citrate-vitamin D (CALCITRATE PLUS D) 315-200 MG-UNIT tablet Take 1 tablet by mouth once daily Active cyanocobalamin (VITAMIN B-12) 1000 MCG tablet Take 1,000 mcg by mouth once daily Active acetaminophen (TYLENOL) 325 MG tablet Take 2 tablets by mouth every 6 hours as needed Maximum allowable Acetaminophen amount = 4 Grams (4000 mg) / 24 hours. 40 tablet 06/07/20 20 Active meloxicam (MOBIC) 15 MG tabletIndications :Benign hypermobility syndrome Take 1 tablet by mouth once daily 90 tablet 3 07/18/20 20 Active Active Problems Problem Noted Date Diagnosed Date Foreign body in bladder and urethra 06/06/2020 Right ankle injury, initial encounter 10/05/2017 Asperger syndrome 06/23/2012 Benign hypermobility syndrome 06/23/2012 Immunizations Immunization Administration Dates Next Due INFLUENZA VACCINE, QUADR. (F LUZONE; FLULAVAL; FLUARIX; AFLURIA QUADRIVALENT; 6MO+), 0.5 ML (IIV4) 07/22/2017 Social History Tobacco Use Types Packs/Day Years Used Date Smoking Tobacco: Never Smokeless Tobacco: Never Alcohol Use Standard Drinks/Week Comments Never 0 (1 standard drink = 0.6 oz pur e alcohol) AUDIT-C Answer Date Recorded Q1: How often do you have a drink containing alc ohol? Never 06/06/2020 Average Number of Drinks Not on file 020 Frequency of Binge Drinking Not on file 05/25 Sex and Gender Information Value Date Recorded Sex Assigned at Not on file Legal Sex Male 2:59 PM CDT Gender Identity Not on file Sexual Orientation Not on file Last Filed Vital Signs Vital Sign Reading Time Taken Comments Blood Pressure 116/70 07/18/2020 1:11 PM CDT Pulse 83 06/07/2020 4:15 PM CDT Temperature 36.7 C (98 F) 06/07/2020 4:15 PM CDT Respiratory Rate 14 06/07/2020 4:15 PM CDT Oxygen Saturation 100% 06/07/2020 4:15 PM CDT Inhaled Oxygen Concentration - - Weight 62.5 kg (137 lb 12.6 oz) 07/18/2020 1:11 PM CDT Height 178.8 cm (5' 10.39) 07/18/2020 1:11 PM C DT Body Mass Index 19.55 07/18/2020 1:11 PM CDT Plan of Treatment Health Maintenance Due Date Last Done Comments HIV SCREENING 2017 HPV VACCINE (1 - Male 3-dose series) 2017 MENINGOCOCCAL (Group B) VACCINE SHARED DECISION-MAKING (1 of 2 - Standard) 2018 HEPATITIS C SCREENING 09/25/2020 DTAP/TDAP/TD VACCINES (1 - Tdap) 2021 HEPATITIS B VACCINE (1 of 3 - 19+ 3-dose series) 2021 DEPRESSION SCREENING 10/25/2024 COVID-19 VACCINE (1 - season) 2025 INFLUENZA VACCINE (#1) 2025 0, 07/27/2019, 08/08/2018, Additional history exists ZOSTER VACCINE (1 of 2) 2052 HIB VACCINE Aged Out No longer eligi ble based on patient's age to complete this topic MENINGOCOCCAL GROUPS A/C/Y/W VACCINE Aged Out No longer eligible based on patient's age to complete this topic PNEUMOCOCCAL VACCINE Aged Out No long er eligible based on patient's age to complete this topic Insurance [facility] Advance Directives * Full Code (Latest Code Status on File) Date Activated Date Inactivated Comments 06/07/2020 12:14 AM 06/07/2020 7:36 PM Care Teams Global Head Advertiser Solutions Relationship Specialty Start Date End Date Kenia Bull MD PCP - General Internal Medicine 05/27/16
== END 2025-09-18 13:52 | disposition home or self-care (01) ==
PROVIDERS: PCP Internal Medicine
DX: Z79.899 Other long term (current) drug therapy (principal)
CPT/HCPCS: 36415; 80053; 80061; 83036; 84146; 84443; 85025